=== PATIENT | male | born 1955 | race Caucasian/White ===

== ENCOUNTER → 2021-01-28 10:50 | Outpatient (REF) | payer OTHER, SELFPAY ==
--- NOTE | 2021-01-28 10:59 | CA_ITS ---
Acquisition Time: 2021-01-28 10:57:42 Total Exercise Time: 00:08:11 Test Indications: CP Medications: SEE CHART Protocol: LUPILLO Max HR: 157 BPM 100% of Pred: 156 BPM Max BP: 184/080 mmHG Max Work Load: 10.1 METS Exercise stress ECHO using Lupillo protocol. Pt exercised for total of 8 min 11 sec. METS 10.10, and MAPHR up tp 100 %. Pt tolerated well, denies any anginal sx durin exercise or in recovery. EKG with multiple PAC's and PVC's, Pt asymptomatic. No ischemic changes seen during exercise or in recovery. Hypertensive response to exercise that normalized in recovery. ECHO images taken at rest and immediately after peak HR achieved. Definity contrast used. Test reviewed with Dr. Hollis Exercise echocardiogram was reviewed. At rest, there is normal LVEF and wall motion. WIth peak exercise, there is appropriate agumentation of wall thickening and contractility. There is normal decrease in end-systolic volumes. Overall, this is a normal study. Referred By: Marlee Mirza Overread By: NIVIA HOLLIS
== END ==
LOC: HO.CARD 10:50
PROVIDERS: Visit Provider Family Medicine
DX: R07.9 Chest pain, unspecified (principal)
CPT/HCPCS: 93350; Q9957